=== PATIENT | female | born 1970 | race Caucasian/White ===

== ENCOUNTER 2016-08-18 09:51 | Outpatient (CLI) | payer OTHER ==
--- NOTE | 2016-08-18 11:26 | DIAGNOSTIC IMAGING REPORT ---
PROCEDURE: MG BILATERAL SCREENING W/CAD INDICATION: SCREENING TECHNIQUE: Bilateral CC and MLO digital views. COMPARISON: Compared to left mammogram (02/11/2016), left mammogram and ultrasound (02/11/2016, 07/09/2015), and screening mammogram studies (07/02/2015 , 05/19/2011). FINDINGS: Computer-aided detection applied. Moderately dense. No change. IMPRESSION: 1. Negative mammogram. RESULT CODE: 1- Negative. A. A negative report should not delay biopsy if a dominant or clinically suspicious mass is present. 10-15% of cancers are not identified by x-ray. B. A negative report may reinforce clinical impression. C. Adenosis and dense breasts may obscure an underlying neoplasm. D. False positive reports average 6-10%. E.. A yearly screening mammogram is recommended. A reminder letter will be scheduled.
== END 2016-08-18 23:00 ==
LOC: MAM SRH 09:51
DX: Z12.31 Encounter for screening mammogram for malignant neoplasm of breast (principal)